=== PATIENT | female | born 1955 | race Caucasian/White ===

== ENCOUNTER 2017-06-24 14:39 | Emergency (ER) | payer OTHER ==
[2017-06-24 14:45] VITALS: O2SAT 96
--- NOTE | 2017-06-24 14:54 | EDPHY ---
H & P Stated Complaint: Right flank and RLQ sharp pain since last night, getting worse. Time Seen by Provider: 06/24/17 14:53 HPI/ROS: CHIEF COMPLAINT: Acute right flank pain HISTORY OF PRESENT ILLNESS: The patient presents to the ED with complaints of acute right flank pain. The patient initially experience pain yesterday with resolution of her symptoms. The patient's pain returned 30 minutes prior to arrival. She describes it is severe and colicky in nature. The patient denies prior history of nephrolithiasis. She denies dysuria. The patient does report a prior history of cholecystectomy. Patient rates her pain as an 8/10. The patient reports nausea and 5 episodes of vomiting. REVIEW OF SYSTEMS: A comprehensive 10 point review of systems is otherwise negative aside from elements mentioned in the history of present illness. Source: Patient Exam Limitations: No limitations - Personal History Current Tetanus Diphtheria and Acellular Pertussis (TDAP): Unsure Tetanus Vaccine Date: UNSURE - Medical/Surgical History Hx Asthma: Yes Hx Chronic Respiratory Disease: No Hx Diabetes: No Hx Cardiac Disease: No Hx Renal Disease: No Hx Cirrhosis: No Hx Alcoholism: No Hx HIV/AIDS: No Hx Splenectomy or Spleen Trauma: No Other PMH: HTN. Asthma.Cholecysctomy - Social History Smoking Status: Never smoked - Physical Exam Exam: General Appearance: Alert, obese female, moderate discomfort secondary to pain Eyes: Pupils equal and round no pallor or injection ENT, Mouth: Mucous membranes moist Respiratory: There are no retractions, lungs are clear to auscultation Cardiovascular: Regular rate and rhythm Gastrointestinal: Minimal tenderness to palpation right mid quadrant, no right lower quadrant tenderness, right CVA tenderness present Neurological: A&O, normal motor function, normal sensory exam, normal cranial nerves Skin: Warm and dry, no rashes Musculoskeletal: Neck is supple nontender Extremities: symmetrical, full range of motion Constitutional: Initial Vital Signs Temperature (C) 36.6 C 06/24/17 14:40 Heart Rate 79 06/24/17 14:40 Respiratory Rate 20 06/24/17 14:40 Blood Pressure 157/104 H 06/24/17 14:40 O2 Sat (%) 96 06/24/17 14:40 O2 Delivery Mode Room Air Allergies/Adverse Reactions: ciprofloxacin [From Cipro] Allergy (Verified 06/06/13 03:59) ciprofloxacin HCl [From Cipro] Allergy (Verified 06/21/10 23:28) Home Medications: Medication Instructions Recorded Amlodipine Besylate 5 mg PO 0600 06/06/13 Cholecalciferol (Vitamin D3) 2,000 [place] [address]/06/13 [Vitamin D3] Fish Oil/Dha/Epa [Fish Oil 1,200 1,200 mg PO 0600 06/06/13 mg Fish Oil] Herbals/Supplements -Info Only 1 ea PO 00 06/06/13 Levothyroxine [Synthroid 112 mcg 112 mcg PO 0600 06/06/13 (RX)] TELMISARTAN [Micardis] 80 mg PO 0600 06/06/13 Tamsulosin HCl [Flomax] 0.4 mg PO DAILY PRN #5 cap 06/24/17 oxyCODONE/APAP 5/325 [Percocet 1 - 2 tab PO Q6-8PRN PRN #20 tab 06/24/17 5/325 (RX)] Medical Decision Making - Diagnostics Imaging Results: Imaging Impressions Abdomen/Pelvis CT 06/24/17 15:00 Impression: 1. 2-mm proximal right ureteral stone with mild to moderate obstructive uropathy. 2. Equivocal punctate nonobstructing left renal stone. 3. Diverticulosis without evidence of diverticulitis. 4. Additional findings as above. Findings discussed with Dr. Gurwinder Arteaga on June 24, 2017 at 1524 hours. Attention: This CT examination is specifically designed to evaluate patients who are clinically suspected of having acute obstructive uropathy. This examination does not use radiographic contrast, and as such, provides only a limited evaluation of the abdomen, pelvis and retroperitoneum. If there is further clinical suspicion for pathological conditions other than obstructive uropathy, a complete CT evaluation of the abdomen and pelvis utilizing intravenous and oral contrast should be considered. ED Course/Re-evaluation: The patient presents to the ED with complaints of acute right flank pain. The patient had an IV established. She received IV morphine and 500 mL of fluid. Given her acute pain she was taken for a stat CT scan of the abdomen pelvis without contrast which demonstrates a 2 mm stone in the right mid ureter. The patient received an additional 30 mg of IV Toradol after her CT scan. The patient received multiple evaluations by myself in the ED over a 2 hour period. I re-evaluated the patient after receiving IV Toradol and oral Flomax. She is completely pain-free at this point time. The patient has been informed of the diagnosis of ureterolithiasis in the expected course of her symptoms. The patient will be discharged home with a prescription for Flomax, Zofran and Percocet. She is advised to use ibuprofen as a first-line pain medication. She will be discharged home with a urinary strainer. She is referred to our on- call urologist Dr. Barksdale. Differential Diagnosis: Differential diagnosis considered includes ureterolithiasis, pyelonephritis, myofascial strain, appendicitis - Data Points Laboratory Results: Laboratory Results 06/24/17 15:00 06/24/17 15:00 06/24/17 06/24/17 06/24/17 16:10 15:00 15:00 WBC 9.45 10^3/uL 10^3/uL (3.80-9.50) RBC 4.82 10^6/uL 10^6/uL (4.18-5.33) Hgb 14.8 g/dL g/dL (12.6-16.3) Hct 43.4 % % (38.0-47.0) MCV 90.0 fL fL (81.5-99.8) MCH 30.7 pg pg (27.9-34.1) MCHC 34.1 g/dL g/dL (32.4-36.7) RDW 13.3 % % (11.5-15.2) Plt Count 223 10^3/uL 10^3/uL (150-400) MPV 10.9 fL fL (8.7-11.7) Neut % (Auto) 49.7 % % (39.3-74.2) Lymph % (Auto) 37.2 % % (15.0-45.0) [place] % (Auto) 6.8 % % (4.5-13.0) Eos % (Auto) 5.4 % % (0.6-7.6) Baso % (Auto) 0.6 % % (0.3-1.7) Nucleat RBC Rel Count 0.0 % % (0.0-0.2) Absolute Neuts (auto) 4.69 10^3/uL 10^3/uL (1.70-6.50) Absolute Lymphs (auto) 3.52 10^3/uL H 10^3/uL (1.00-3.00) Absolute Monos (auto) 0.64 10^3/uL 10^3/uL (0.30-0.80) Absolute Eos (auto) 0.51 10^3/uL H 10^3/uL (0.03-0.40) Absolute Basos (auto) 0.06 10^3/uL 10^3/uL (0.02-0.10) Absolute Nucleated RBC 0.00 10^3/uL 10^3/uL (0-0.01) Immature Gran % 0.3 % % (0.0-1.1) Immature Gran # 0.03 10^3/uL 10^3/uL (0.00-0.10) Sodium 143 mEq/L mEq/L (134-144) Potassium 4.0 mEq/L mEq/L (3.5-5.2) Chloride 103 mEq/L mEq/L (97-110) Carbon Dioxide 27 mEq/l mEq/l (22-31) Anion Gap 13 mEq/L mEq/L (8-16) BUN 17 mg/dL mg/dL (7-23) Creatinine 1.0 mg/dL mg/dL (0.6-1.0) Estimated GFR 56 Glucose 154 mg/dL H mg/dL (70-100) Calcium 9.6 mg/dL mg/dL (8.5-10.4) Total Bilirubin 0.5 mg/dL mg/dL (0.1-1.4) Conjugated Bilirubin 0.0 mg/dL mg/dL (0.0-0.5) Unconjugated Bilirubin 0.5 mg/dL mg/dL (0.0-1.1) AST 26 IU/L IU/L (14-46) ALT 33 IU/L IU/L (9-52) Alkaline Phosphatase 72 IU/L IU/L (38-126) Total Protein 7.0 g/dL g/dL (6.3-8.2) Albumin 4.1 g/dL g/dL (3.5-5.0) Lipase 211 IU/L IU/L (23-300) Urine Color PALE YELLOW Urine Appearance HAZY Urine pH 7.0 (5.0-7.5) Ur Specific [place] 1.012 (1.002-1.030) Urine Protein NEGATIVE (NEGATIVE) Urine Ketones NEGATIVE (NEGATIVE) Urine Blood 2+ H (NEGATIVE) Urine Nitrate NEGATIVE (NEGATIVE) Urine Bilirubin NEGATIVE (NEGATIVE) Urine Urobilinogen NEGATIVE EU EU (0.2-1.0) Ur Leukocyte Esterase NEGATIVE (NEGATIVE) Urine RBC 50-182 /hpf H /hpf (0-3) Urine WBC 1-3 /hpf /hpf (0-3) Ur Epithelial Cells TRACE /lpf /lpf (NONE-1+) Amorphous Sediment PRESENT /hpf /hpf (NONE-1+) Urine Mucus TRACE /lpf /lpf (NONE-1+) Urine Glucose 1+ H (NEGATIVE) Medications Given: Discontinued Medications Sodium Chloride (Ns) 1,000 mls @ 0 mls/hr IV EDNOW ONE; Wide Open PRN Reason: Protocol Stop: 06/24/17 15:00 Last Admin: 06/24/17 15:02 Dose: 1,000 mls Ketorolac Tromethamine (Toradol) 30 mg IVP EDNOW ONE Stop: 06/24/17 15:27 Last Admin: 06/24/17 15:38 Dose: 30 mg Morphine Sulfate (Morphine) 4 mg IVP EDNOW ONE Stop: 06/24/17 15:00 Last Admin: 06/24/17 15:02 Dose: 4 mg Tamsulosin HCl (Flomax) 0.4 mg PO EDNOW ONE Stop: 06/24/17 15:29 Last Admin: 06/24/17 15:38 Dose: 0.4 mg Departure - Departure Disposition: Home, Routine, Self-Care Clinical Impression: Renal colic on right side Condition: Good Instructions: Renal Colic (ED) Additional Instructions: 1. Take Ibuprofen or Motrin 600 mg by mouth three times a day. 2. Percocet as needed for severe pain 3. Flomax as directed 4. Zofran as needed for nausea 5. Strain urine as directed 6. Return to the Emergency Department for intractable pain, fever or vomiting. 7. Followup with the urologist, Dr. Barksdale, you have been referred to for unimproved symptoms. Referrals: Brandee Martinez MD [Primary Care Provider] - As per Instructions José Manuel Barksdale MD [Medical Doctor] - As per Instructions Prescriptions: oxyCODONE/APAP 5/325 [Percocet 5/325 (RX)] 1 - 2 tab PO Q6-8PRN PRN #20 tab PRN Reason: for pain Tamsulosin HCl [Flomax] 0.4 mg PO DAILY PRN #5 cap PRN Reason: for pain
[2017-06-24] MEDS ORDERED: ONDANSETRON 4 MG/2 ML VIAL ONE (14:57)
[2017-06-24] MEDS ORDERED: NS 1,000 ML IV ONE (14:59)
[2017-06-24 15:10] LABS: % IMMATURE GRANULYOCYTES 0.3 % (0.0-1.1); ABSOLUTE IMMATURE GRANULOCYTES 0.03 10^3/uL (0.00-0.10); ADD DIFF? NO; ADD MORPH? NO; ADD SCAN? NO; ATYPICAL LYMPHOCYTE FLAG 10 (0-99); FRAGMENT RBC FLAG 0 (0-99); HEMATOCRIT 43.4 % (38.0-47.0); HEMOGLOBIN 14.8 g/dL (12.6-16.3); LEFT SHIFT FLG 0 (0-99); LIPEMIA HEMOLYSIS FLAG 90 (0-99); MEAN CELL HEMOGLOBIN 30.7 pg (27.9-34.1); MEAN CELL HEMOGLOBIN CONCENTR. 34.1 g/dL (32.4-36.7); MEAN PLATELET VOLUME 10.9 fL (8.7-11.7); PLATELET CLUMPS FLAG 0 (0-99); PLATELET COUNT 223 10^3/uL (150-400); RED BLOOD CELL COUNT 4.82 10^6/uL (4.18-5.33); RED CELL DISTRIBUTION WIDTH 13.3 % (11.5-15.2)
[2017-06-24 15:24] LABS: ALANINE AMINOTRANSFERASE 33 IU/L (9-52); ALBUMIN 4.1 g/dL (3.5-5.0); ALKALINE PHOSPHATASE 72 IU/L (38-126); ANION GAP 13 mEq/L (8-16); ASPARTATE AMINOTRANSFERASE 26 IU/L (14-46); BILIRUBIN,TOTAL 0.5 mg/dL (0.1-1.4); BILIRUBIN-UNCONJUGATED 0.5 mg/dL (0.0-1.1); CALCIUM 9.6 mg/dL (8.5-10.4); CARBON DIOXIDE 27 mEq/l (22-31); CHLORIDE 103 mEq/L (97-110); GLOMERULAR FILTRATION RATE 56; GLUCOSE 154 mg/dL (70-100); SODIUM 143 mEq/L (134-144)
[2017-06-24] MEDS ORDERED: KETOROLAC 30 MG/1 ML SDV IVP ONE (15:26)
[2017-06-24] MEDS ORDERED: TAMSULOSIN HCL 0.4 MG CAP PO ONE (15:28)
[2017-06-24 16:19] VITALS: BP 106/81; PULSE 67; RESP 18; TEMP 98.1
[2017-06-24 16:52] LABS: COLOR PALE YELLOW; LEUKOCYTE ESTERASE,URINE NEGATIVE (NEGATIVE); NITRITE,URINE NEGATIVE (NEGATIVE)
[2017-06-24 17:20] LABS: AMORPHOUS PRESENT /hpf (NONE-1+); MUCUS TRACE /lpf (NONE-1+); RBC,URINE 50-182 /hpf (0-3)
== END 2017-06-24 16:18 | disposition home or self-care (01) ==
DX: N23 Unspecified renal colic (principal); J45.909 Unspecified asthma, uncomplicated; I10 Essential (primary) hypertension; E86.9 Volume depletion, unspecified; Z90.49 Acquired absence of other specified parts of digestive tract
CPT/HCPCS: 96374; J1885; J2405

== ENCOUNTER → 2018-02-24 | Outpatient (CLI) | payer OTHER | LOC: BMCIMAGING 11:51 | PROVIDERS: ATTEND Podiatrist Foot & Ankle Surgery | DX: M79.671 Pain in right foot (principal) ==

== ENCOUNTER → 2019-01-01 | Outpatient (CLI) | payer OTHER | LOC: BMCIMAGING 07:57 ==